=== PATIENT | female | born 1960 | race Caucasian/White ===

== ENCOUNTER 2018-05-28 13:10 | Emergency (ER) | payer OTHER ==
[~2018-05-28] VITALS: Ht 149.9 cm; Wt 74.8 kg
[2018-05-28 13:10] VITALS: BP 104/62
[~2018-05-28 13:10] MED LIST: ALPR2TAB5 PO; HYDR-2769 PO
[2018-05-28] MEDS ORDERED: IV NORMAL SALINE 1,000ML 1,000 ML IV ONE (14:15)
--- NOTE | 2018-05-28 15:29 | RAD ---
EXAM: Left foot 3 views. HISTORY: Left foot pain, infection. COMPARISON: 10/15/2015. FINDINGS: The tip of the third digit is not well visualized. There appears to be surrounding soft tissue swelling. A cortical erosion cannot be excluded. No fractures are identified. Joint spaces and alignment are maintained. IMPRESSION: 1. Correlate for the site of infection to exclude acute or prior osteomyelitis at the tip of the third digit. Detailed images of the third digit could be more specific if there is persistent concern. Electronically signed by: Jayde Hallman MD (05/28/2018 3:26 PM) [facility] [place]
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
[2018-05-28 15:59] LABS: BASO % 1 % (0-3); EOS % 1 % (0-3); HEMATOCRIT 35.8 % (36.0-47.0); HEMOGLOBIN 11.9 g/dL (12.0-15.5); LYMPH # 0.6 x10^3/uL (1.0-4.8); LYMPH % 13 % (24-48); MEAN CORPUSCULAR HEMOGLOBIN 31 pg (25-35); MEAN CORPUSCULAR HGB CONC 33 g/dL (31-37); MEAN CORPUSCULAR VOLUME 94 fL (79-100); MONO # 0.4 x10^3/uL (0.0-1.1); MONO % 8 % (0-9); NEUT # 4.1 x10^3uL (1.8-7.7); NEUT % 79 % (31-73); PLATELET COUNT 137 x10^3/uL (140-400); RED BLOOD COUNT 3.81 x10^6/uL (3.50-5.40); RED CELL DISTRIBUTION WIDTH 15.9 % (11.5-14.5); WHITE BLOOD COUNT 5.2 x10^3/uL (4.0-11.0)
[2018-05-28 16:10] LABS: ALBUMIN/GLOBULIN RATIO 0.9 (1.0-1.7); CALCIUM 8.4 mg/dL (8.5-10.1); CREATININE 1.4 mg/dL (0.6-1.0); GFR 38.5; POTASSIUM 3.9 mmol/L (3.5-5.1); TOTAL BILIRUBIN 0.8 mg/dL (0.2-1.0); TOTAL PROTEIN 6.4 g/dL (6.4-8.2)
[2018-05-28 16:54] LABS: % ATYL 3 % (0-0); % EOS 1 % (0-5); % LYMPHS 9 % (24-48); % MONOS 11 % (0-10); % SEGS 76 % (35-66)
[2018-05-28 16:56] LABS: HYPOCHROMIA SLIGHT; PLT ESTIMATE ADEQUATE (ADEQUATE); POLYCHROMASIA SLIGHT
[2018-05-28 17:55] LABS: BACTERIA,URINE 0 /HPF (0-FEW); BILIRUBIN,URINE NEG (NEG); CLARITY,URINE HAZY; COLOR,URINE AMBER; GLUCOSE,URINE NEG (NEG); NITRITE,URINE NEG (NEG); RBC,URINE 0 /HPF (0-2); SQUAMOUS EPITHELIAL CELL,UR OCC /LPF; UROBILINOGEN,URINE 4 mg/dL (0.2 mg/dL); WBC,URINE 0 /HPF (0-4)
== END 2018-05-28 17:40 | disposition home or self-care (01) ==
LOC: EEVIPCON 13:10 → ER 13:10
DX: S90.32XA Contusion of left foot, initial encounter (principal); S90.822A Blister (nonthermal), left foot, initial encounter; J01.00 Acute maxillary sinusitis, unspecified; L08.89 Other specified local infections of the skin and subcutaneous tissue; D69.6 Thrombocytopenia, unspecified; R74.0 Nonspecific elevation of levels of transaminase and lactic acid dehydrogenase [LDH]; R91.8 Other nonspecific abnormal finding of lung field; M47.892 Other spondylosis, cervical region; Z79.2 Long term (current) use of antibiotics; Z79.01 Long term (current) use of anticoagulants; Z88.1 Allergy status to other antibiotic agents; Z88.6 Allergy status to analgesic agent; Z91.012 Allergy to eggs; Y04.2XXA Assault by strike against or bumped into by another person, initial encounter; Y93.89 Activity, other specified; Y92.89 Other specified places as the place of occurrence of the external cause; Y99.8 Other external cause status
CPT/HCPCS: 10160; 36415; 70450; 72125; 73630; 80053; 81001; 83605; 85007; 85025; 87040; 87070; 96360; 96361; 99284-25; J7030

== ENCOUNTER 2020-04-22 20:39 | Emergency (ER) | payer MEDICARE, OTHER | END 2020-04-22 21:21 | disposition left against medical advice (07) | LOC: ER 20:39 | DX: N39.9 Disorder of urinary system, unspecified (principal); Z53.21 Procedure and treatment not carried out due to patient leaving prior to being seen by health care provider ==

== ENCOUNTER 2020-10-10 10:25 | Emergency (ER) | payer MEDICARE ==
[~2020-10-10] VITALS: Ht 149.9 cm; Wt 62.4 kg
[2020-10-10 10:35] VITALS: BP 111/60
[2020-10-10 11:42] LABS: BILIRUBIN,URINE NEG (NEG); CLARITY,URINE CLEAR; COLOR,URINE YELLOW; GLUCOSE,URINE NEG (NEG); NITRITE,URINE NEG (NEG); UROBILINOGEN,URINE 0.2 mg/dL (0.2 mg/dL)
[2020-10-10 11:45] LABS: BACTERIA,URINE MANY /HPF (0-FEW); SQUAMOUS EPITHELIAL CELL,UR MOD /LPF
[2020-10-10 11:54] LABS: BASO # 0.1 x10^3/uL (0.0-0.2); BASO % 1 % (0-3); EOS % 1 % (0-3); HEMATOCRIT 41.2 % (36.0-47.0); LYMPH # 0.3 x10^3/uL (1.0-4.8); LYMPH % 5 % (24-48); MEAN CORPUSCULAR HEMOGLOBIN 36 pg (25-35); MEAN CORPUSCULAR HGB CONC 34 g/dL (31-37); MEAN CORPUSCULAR VOLUME 105 fL (79-100); MONO # 0.2 x10^3/uL (0.0-1.1); MONO % 4 % (0-9); NEUT # 6.4 x10^3uL (1.8-7.7); NEUT % 90 % (31-73); PLATELET COUNT 129 x10^3/uL (140-400); RED BLOOD COUNT 3.91 x10^6/uL (3.50-5.40); WHITE BLOOD COUNT 7.1 x10^3/uL (4.0-11.0)
--- NOTE | 2020-10-10 12:17 | RAD ---
CT ABDOMEN+PELVIS WO October 10, 2020 Indication: Reason: decreased urination, h/o lung ca Exposure: One or more of the following individualized dose reduction techniques were utilized for thi s examination: 1. Automated exposure control 2. Adjustment of the mA and/or kV according to patient size 3. Use of iterative reconstruction technique. Comparison: None are available. Contrast: No intravenous contrast given. No oral contrast per request. Evaluation of solid viscera, bowel and vasculature is compromised by the noncontrast technique. Lower thorax: Lung bases are clear. Liver: Unremarkable Spleen: Small calcifications from prior granulomatous disease. Pancreas: Unremarkable Adrenals: No evidence of mass. Kidneys: Patient has an anatomic variant horseshoe kidney. There are small renal calculi bilaterally measuring up to 5 mm on the left and 4 mm on the right. There is mild left hydronephrosis with a abreu sition to a normal caliber ureter at the ureteropelvic junction, likely of limited clinical significa nce. No ureteronephrosis. Gallbladder: Surgically absent. Aorta: Nonaneurysmal Lymph nodes: No significant enlargement GI tract: No evidence of acute colitis. Mildly dilated loops of air-filled small intestine measuring up to 3.5 cm. There is a transition to nondilated loops of small bowel in the upper mid abdomen (imag e 61). There is no pneumatosis, bowel wall thickening or pleural venous gas. The appendix is normal. Reproductive organs:The uterus is surgically absent. Urinary bladder: Not adequately distended for evaluation. Peritoneum: No evidence of pneumoperitoneum. No free fluid. Abdominal wall: Unremarkable Spine: Vertebral body height and alignment are intact. Bones: No destructive process identified. External Soft Tissue: No acute findings. IMPRESSION: 1. No evidence of urinary obstruction. 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 There are multiple renal calculi which are nonobstructing. There is mild left hydroureteronephrosis with a transition at the UPJ, likely of limited clinical significance. 2. Mildly dilated air-filled small intestine (up to 3.5 cm) with a transition to decompressed small i ntestine in the mid upper abdomen. CT with IV and oral contrast recommended if there are clinical sig ns and symptoms of small bowel obstruction. Electronically signed by: Donald Andre (10/10/2020 12:15 PM) [id number]
[2020-10-10 12:34] LABS: ALBUMIN/GLOBULIN RATIO 1.1 (1.0-1.7); ALK PHOS 131 U/L (46-116); ALT (SGPT) 16 U/L (14-59); AST (SGOT) 20 U/L (15-37); BLOOD UREA NITROGEN 10 mg/dL (7-20); BUN/CREATININE RATIO 8 (6-20); CALCIUM 8.7 mg/dL (8.5-10.1); CARBON DIOXIDE 31 mmol/L (21-32); CREATININE 1.2 mg/dL (0.6-1.0); GFR 45.5; GLUCOSE 103 mg/dL (70-99); TOTAL BILIRUBIN 0.3 mg/dL (0.2-1.0); TOTAL PROTEIN 7.6 g/dL (6.4-8.2)
--- NOTE | 2020-10-10 13:18 | PHYS DOC ---
Past History Past Medical History: Cancer, Gallstones Past Surgical History: Cholecystectomy, Hysterectomy, Oophorectomy, Tonsillectomy, Other Additional Past Surgical Histo: left lower lobectomy Alcohol Use: None Drug Use: None General Adult EDM: Chief Complaint: PAIN ON URINATION HPI: HPI: 60-year-old female past medical history small cell lung cancer and "lymphoma" s/p chemo/rads, presents to the ED with [id number] yrs/exhusband, (patient consents to his/her/their knowledge and involvement in pts' medical care), sent in by [facility] with concern for decreased urine output and dysuria. UC papers note heart rate was 105. Patient states she was recently seen by her oncologist and was informed her cancer has returned-has follow-up in a few months regarding treatment plan. Review of Systems: Review of Systems: Constitutional: Denies fever or chills Eyes: Denies change in visual acuity HENT: Denies nasal congestion or sore throat Respiratory: Denies cough or shortness of breath Cardiovascular: Denies chest pain or edema GI: Denies abdominal pain, nausea, vomiting, bloody stools or diarrhea : Denies dysuria Musculoskeletal: Denies back pain or joint pain Integument: Denies rash Neurologic: Denies headache, focal weakness or sensory changes Endocrine: Denies polyuria or polydipsia Lymphatic: Denies swollen glands Psychiatric: Denies depression or anxiety Allergies: Allergies: Allergies Coded Allergies Type Severity Reaction Last Updated Verified amoxicillin Allergy Severe anaphylaxis 06/18/14 Yes aspirin Allergy Severe Unknown 10/15/15 Yes azithromycin Allergy Severe anaphylaxis 06/18/14 Yes egg Allergy Intermediate 06/18/14 Yes Physical Exam: PE: Constitutional: Well developed, well nourished, no acute distress, non-toxic appearance. HENT: Normocephalic, atraumatic, Eyes: EOMI, conjunctiva normal, no discharge. Neck: Normal range of motion, supple, Cardiovascular: S1/2 present, regular rhythm Lungs & Thorax: Speaking in full sentences, bilateral equal chest rise, no tachypnea or increased work of breathing Abdomen: soft, no tenderness, Skin: Warm, dry, no erythema, no rash. [] Back: No tenderness, no CVA tenderness. [] Extremities: No tenderness, no cyanosis, no lower extremity edema Neurologic: Alert and oriented X 3, normal motor function, normal sensory function, no focal deficits noted. [] Psychologic: Affect normal, judgement normal, mood normal. [] Current Patient Data: Labs: Laboratory Tests Test 10/10/20 11:01 10/10/20 11:38 Urine Collection Type U cath Urine Color Yellow Urine Clarity Clear Urine pH 6.5 Urine Specific [place] 1.015 Urine Protein Neg (NEG-TRACE) Urine Glucose (UA) Neg mg/dL (NEG) Urine Ketones (Stick) Neg mg/dL (NEG) Urine Blood Trace (NEG) Urine Nitrite Neg (NEG) Urine Bilirubin Neg (NEG) Urine Urobilinogen Dipstick 0.2 mg/dL (0.2 mg/dL) Urine Leukocyte Esterase Neg (NEG) Urine RBC 6-10 /HPF (0-2) Urine WBC 5-10 /HPF (0-4) Urine Squamous Epithelial Cells Mod /LPF Urine Transitional Epithelial Cells Mod /LPF Urine Bacteria Many /HPF (0-FEW) Urine Mucus Slight /LPF White Blood Count 7.1 x10^3/uL (4.0-11.0) Red Blood Count 3.91 x10^6/uL (3.50-5.40) Hemoglobin 14.0 g/dL (12.0-15.5) Hematocrit 41.2 % (36.0-47.0) Mean Corpuscular Volume 105 fL (79-100) H Mean Corpuscular Hemoglobin 36 pg (25-35) H Mean Corpuscular Hemoglobin Concent 34 g/dL (31-37) Red Cell Distribution Width 16.0 % (11.5-14.5) H Platelet Count 129 x10^3/uL (140-400) L Neutrophils (%) (Auto) 90 % (31-73) H Lymphocytes (%) (Auto) 5 % (24-48) L Monocytes (%) (Auto) 4 % (0-9) Eosinophils (%) (Auto) 1 % (0-3) Basophils (%) (Auto) 1 % (0-3) Neutrophils # (Auto) 6.4 x10^3uL (1.8-7.7) Lymphocytes # (Auto) 0.3 x10^3/uL (1.0-4.8) L Monocytes # (Auto) 0.2 x10^3/uL (0.0-1.1) Eosinophils # (Auto) 0.0 x10^3/uL (0.0-0.7) Basophils # (Auto) 0.1 x10^3/uL (0.0-0.2) Sodium Level Pending Potassium Level Pending Chloride Level Pending Carbon Dioxide Level 31 mmol/L (21-32) Anion Gap Pending Blood Urea Nitrogen 10 mg/dL (7-20) Creatinine 1.2 mg/dL (0.6-1.0) H Estimated GFR (Cockcroft-Gault) 45.5 BUN/Creatinine Ratio 8 (6-20) Glucose Level 103 mg/dL (70-99) H Lactic Acid Level 1.9 mmol/L (0.4-2.0) Calcium Level 8.7 mg/dL (8.5-10.1) Total Bilirubin 0.3 mg/dL (0.2-1.0) Aspartate Amino Transferase (AST) 20 U/L (15-37) Alanine Aminotransferase (ALT) 16 U/L (14-59) Alkaline Phosphatase 131 U/L (46-116) H Total Protein 7.6 g/dL (6.4-8.2) Albumin 4.0 g/dL (3.4-5.0) Albumin/Globulin Ratio 1.1 (1.0-1.7) Vital Signs: Vital Signs Date Time Temp Pulse Resp B/P (MAP) Pulse Ox O2 Delivery O2 Flow Rate FiO2 10/10/20 10:35 103 24 111/60 (77) 98 Room Air 10/10/20 10:30 97.8 EKG: EKG: [] Radiology/Procedures: Radiology/Procedures: []IMAGING REPORT Signed PATIENT: MEHNAZ CHESTER ACCOUNT: [id number] : 1960 LOCATION: ER AGE: 60 SEX: F EXAM STATUS: REG ER ORD. PHYSICIAN: VALERIE SANCHEZ DO REASON: decreased urination, h/o lung ca PROCEDURE: CT ABDOMEN PELVIS WO CONTRAST CT ABDOMEN+PELVIS WO October 10, 2020 Indication: Reason: decreased urination, h/o lung ca Exposure: One or more of the following individualized dose reduction techniques were utilized for this examination: 1. Automated exposure control 2. Adjustment of the mA and/or kV according to patient size 3. Use of iterative reconstruction technique. Comparison: None are available. Contrast: No intravenous contrast given. No oral contrast per request. Evaluation of solid viscera, bowel and vasculature is compromised by the noncontrast technique. Lower thorax: Lung bases are clear. Liver: Unremarkable Spleen: Small calcifications from prior granulomatous disease. Pancreas: Unremarkable Adrenals: No evidence of mass. Kidneys: Patient has an anatomic variant horseshoe kidney. There are small renal calculi bilaterally measuring up to 5 mm on the left and 4 mm on the right. There is mild left hydronephrosis with a transition to a normal caliber ureter at the ureteropelvic junction, likely of limited clinical significance. No ureteronephrosis. Gallbladder: Surgically absent. Aorta: Nonaneurysmal Lymph nodes: No significant enlargement GI tract: No evidence of acute colitis. Mildly dilated loops of air-filled small intestine measuring up to 3.5 cm. There is a transition to nondilated loops of small bowel in the upper mid abdomen (image 61). There is no pneumatosis, bowel wall thickening or pleural venous gas. The appendix is normal. Reproductive organs:The uterus is surgically absent. Urinary bladder: Not adequately distended for evaluation. Peritoneum: No evidence of pneumoperitoneum. No free fluid. Abdominal wall: Unremarkable Spine: Vertebral body height and alignment are intact. Bones: No destructive process identified. External Soft Tissue: No acute findings. IMPRESSION: 1. No evidence of urinary obstruction. 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 There are multiple renal calculi which are no nobstructing. There is mild left hydroureteronephrosis with a transition at the UPJ, likely of limited clinical significance. 2. Mildly dilated air-filled small intestine (up to 3.5 cm) with a transition to decompressed small intestine in the mid upper abdomen. CT with IV and oral contrast recommended if there are clinical signs and symptoms of small bowel obstruction. Electronically signed by: Aliza Andre (10/10/2020 12:15 PM) [id number] DICTATED AND SIGNED BY: ALIZA ANDRE MD DATE: 10/10/20 1149 CC: ROXANNA GARCIA; VALERIE SANCHEZ DO ~MTH0 0 Heart Score: C/O Chest Pain: No Risk Factors: Risk Factors: DM, Current or recent (<one month) smoker, HTN, HLP, family history of CAD, obesity. Risk Scores: Score 0 - 3: 2.5% MACE over next 6 weeks - Discharge Home Score 4 - 6: 20.3% MACE over next 6 weeks - Admit for Clinical Observation Score 7 - 10: 72.7% MACE over next 6 weeks - Early Invasive Strategies Course & Med Decision Making: Course & Med Decision Making Pertinent Labs and Imaging studies reviewed. (See chart for details) [] Dragon Disclaimer: Dragon Disclaimer: This electronic medical record was generated, in whole or in part, using a voice recognition dictation system. Departure Departure: Impression: Primary Impression: Dysuria Additional Impression: Renal insufficiency Disposition: 02 SHORT TERM HOSPITAL Condition: STABLE Referrals: ROXANNA GARCIA (PCP) [facility]-Dr. Ramires or Dr. Mai within 3-[address], [address] [place] [address] Patient Instructions: Urinary Tract Infection Additional Instructions: REPEAT YOUR URINE TEST WITH PCP IN 10 DAYS EMERGENCY DEPARTMENT GENERAL DISCHARGE INSTRUCTIONS Thank you for coming to [facility] (ED) today and trusting us with you care. We trust that you had a positivie experience in our Emergency Department. If you wish to speak to the department management, you may call the director at [phone]. YOUR FOLLOW UP INSTRUCTIONS ARE FOLLOWS: 1. Do you have a private Doctor? If you do not have a private doctor, please ask for a resource list of physicians or clinics that may be able to assist you with follow up care. 3. A lab test or culture has been done, your results will be reviewed and you will be notified if you need a change in treatment. ADDITIONAL INSTRUCTIONS AND INFORMATION: 1. Your care today has been supervised by a physician who is specially trained in emergency care. Many problems require more than one evaluation for a complete diagnosis and treatment. We recommend that you schedule your follow up appointment as recommended to ensure complete treatment of you illness or injury. If you are unable to obtain follow up care and continue to have a problem, or if your condition worsens, we recommend that you return to the ED. 2. We are not able to safely determine your condition over the phone nor are we able to give sound medical advice over the phone. For these safety reasons, if you call for medical advice we will ask you to come to the ED for further evaluation. 3. If you have any questions regarding these discharge instructions please call the ED at [phone]. SAFETY INFORMATION: In the interest of safety, wellness, and injury prevention; we encourage you to wear your sealbelt, if you smoke; quite smoking, and we encourage family to use a protective helmet for bicycling and other sporting events that present an increased risk for head injury. IF YOUR SYMPTOMS WORSEN OR NEW SYMPTOMS DEVELOP, OR YOU HAVE CONCERNS ABOUT YOUR CONDITION; OR IF YOUR CONDITION WORSENS WHILE YOU ARE WAITING FOR YOUR FOLLOW UP APPOINTMENT; EITHER CONTACT YOUR PRIMARY CARE DOCTOR, THE PHYSICIAN WHOSE NAME AND NUMBER YOU WERE GIVEN, OR RETURN TO THE ED IMMEDIATELY. Scripts Phenazopyridine Hcl (PHENAZOPYRIDINE HCL) 100 Mg Tablet 1 TAB PO TID for urinary discomfort for 3 Days, #9 TAB 0 Refills Prov: VALERIE SANCHEZ DO 10/10/20 Sulfamethoxazole/Trimethoprim (BACTRIM DS TABLET) 1 Each Tablet 1 TAB PO BID for uti for 5 Days, #10 TAB 0 Refills Prov: VALERIE SANCHEZ DO 10/10/20 VALERIE SANCHEZ DO Oct 10, 2020 13:18
[2020-10-10] MEDS ORDERED: IOHEXOL 240 MG/ML 50ML VIAL. ONE (13:20)
[2020-10-10] MEDS ORDERED: IOHEXOL 300 MG/ML 75 ML VIAL. IV ONE (13:30)
[2020-10-10] MEDS ORDERED: SULF1TAB24 PO (13:38)
[2020-10-10] MEDS ORDERED: PHEN-443 PO (13:39)
[2020-10-10] MEDS ORDERED: CONTRAST GIVEN. MC PRN (13:45)
== END 2020-10-10 13:51 | disposition short-term general hospital (02) ==
LOC: ER 10:25
DX: N28.9 Disorder of kidney and ureter, unspecified (principal); N39.0 Urinary tract infection, site not specified; Z88.1 Allergy status to other antibiotic agents; Z88.5 Allergy status to narcotic agent; Z90.49 Acquired absence of other specified parts of digestive tract; Z90.710 Acquired absence of both cervix and uterus
CPT/HCPCS: 36415; 74176; 80053; 81001; 83605; 85025; 87040; 87086; 99284-25

== ENCOUNTER 2021-04-15 14:59 | Inpatient (IN) | payer MEDICARE ==
[~2021-04-15] VITALS: Ht 175.3 cm; Wt 57.0 kg
[~2021-04-15 14:59] MED LIST changes: +PHEN-443 PO; +SULF1TAB24 PO
[2021-04-15] MEDS ORDERED: IV NORMAL SALINE 1,000ML 1,000 ML IV ONE (15:30)
--- NOTE | 2021-04-15 15:37 | EKG ---
[address] [address] Test Date: 2021-04-15 Test Time: 15:32:29 Pat Name: MEHNAZ CHESTER Department: Room: Gender: F Active Directory Specialist: MARYLIN : 1960 Requested By: SUELLEN DELUCA Order Number: [id number] Reading MD: Rush Alejandro Measurements Intervals [place]herty Rate: 97 P: 76 ME: 136 QRS: -5 QRSD: 82 T: 55 QT: 312 QTc: 400 Interpretive Statements SINUS RHYTHM ATRIAL PREMATURE COMPLEX(ES) LEFTWARD AXIS Electronically Signed On 04-16-2021 19:31:37 TIMBER ROBBER by Rush Alejandro
--- NOTE | 2021-04-15 15:57 | RAD ---
EXAM: Chest, single view. HISTORY: Short of breath. COMPARISON: Cervical spine CT dated 05/28/2018. FINDINGS: A single view of the chest obtained. There is masslike right suprahilar opacity. There is a dditional focal opacity with adjacent pleural thickening within the left lung apex. There are clips o verlying the left hilum and left inferior lateral thorax. The heart is normal in size. There is no pl eural effusion or pneumothorax. IMPRESSION: 1. Masslike right suprahilar opacity, likely corresponding with neoplasm or post radiation changes. T his is similar compared to the prior CT when allowing for differences in imaging modality. 2. Left apical opacity with adjacent pleural thickening, without a convincing correlate on the prior CT. This may be due to additional scarring or underlying neoplasm. Electronically signed by: Elizabeth Raza MD (04/15/2021 3:55 PM) [id number]
[2021-04-15 16:14] LABS: BASO % 0 % (0-3); EOS % 0 % (0-3); HEMATOCRIT 36.2 % (36.0-47.0); HEMOGLOBIN 12.1 g/dL (12.0-15.5); LYMPH # 0.2 x10^3/uL (1.0-4.8); LYMPH % 3 % (24-48); MEAN CORPUSCULAR HEMOGLOBIN 33 pg (25-35); MEAN CORPUSCULAR HGB CONC 33 g/dL (31-37); MEAN CORPUSCULAR VOLUME 100 fL (79-100); MONO # 0.4 x10^3/uL (0.0-1.1); MONO % 5 % (0-9); NEUT # 6.7 x10^3uL (1.8-7.7); NEUT % 92 % (31-73); PLATELET COUNT 211 x10^3/uL (140-400); RED BLOOD COUNT 3.61 x10^6/uL (3.50-5.40); RED CELL DISTRIBUTION WIDTH 15.2 % (11.5-14.5); WHITE BLOOD COUNT 7.3 x10^3/uL (4.0-11.0)
[2021-04-15 16:15] LABS: CALCIUM 8.4 mg/dL (8.5-10.1); GFR 56.2
--- NOTE | 2021-04-15 16:23 | PHYS DOC ---
Past History Past Medical History: Cancer, Gallstones Additional Past Medical Histor: lung cancer (SUELLEN DELUCA APRN) Past Surgical History: Cholecystectomy, Hysterectomy, Oophorectomy, Tonsillectomy, Other Additional Past Surgical Histo: left lower lobectomy (SUELLEN DELUCA APRN) Alcohol Use: None Drug Use: None (SUELLEN DELUCA APRN) Adult General Chief Complaint Chief Complaint: DIARRHEA HPI HPI Patient is a 60-year-old female presents to the emergency department complaining of diarrhea with cough and congestion for the past week. 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 Patient denies chest pains, abdominal pain, denies constipation, denies increased urinary frequency, urinary burning, or other dysuria, denies seeing blood in her urine. Patient denies seeing blood in her stool stating that she has had diarrhea every day for the past week noting loose brown stool. Patient denies recent fever or chills. Patient denies other physical complaints or physical concerns. (SUELLEN DELUCA APRN) Review of Systems Review of Systems 14 body systems of review of systems have been reviewed. See HPI for pertinent positives and negative responses, otherwise all other systems are negative, nonpertinent or noncontributory. Constitutional: Negative except as outlined in HPI above. Skin: Negative except as outlined in HPI above. Eyes: Negative except as outlined in HPI above. HENT: Negative except as outlined in HPI above. Respiratory: Negative except as outlined in HPI above. Cardiovascular: Negative except as outlined in HPI above. GI: Negative except as outlined in HPI above. : Negative except as outlined in HPI above. Musculoskeletal: Negative except as outlined in HPI above. Integument: Negative except as outlined in HPI above. Neurologic: Negative except as outlined in HPI above. Endocrine: Negative except as outlined in HPI above. Lymphatic: Negative except as outlined in HPI above. Psychiatric: Negative except as outlined in HPI above. (SUELLEN DELUCA APRN) Current Medications Current Medications Current Medications Medications (Trade) Dose Ordered Sig/Travis Start Time Stop Time Status Last Admin Dose Admin Sodium Chloride 1,000 ml @ 1,000 mls/hr 1X ONCE 04/15/21 15:30 04/15/21 16:29 04/15/21 15:30 1,000 MLS/HR (SUELLEN DELUCA APRN) Allergies Allergies Allergies Coded Allergies Type Severity Reaction Last Updated Verified amoxicillin Allergy Severe anaphylaxis 06/18/14 Yes aspirin Allergy Severe Unknown 10/15/15 Yes azithromycin Allergy Severe anaphylaxis 06/18/14 Yes egg Allergy Intermediate 06/18/14 Yes (SUELLEN DELUCA APRN) Physical Exam Physical Exam Constitutional: Well developed, well nourished, no acute distress, non-toxic appearance. 60-year-old female pale in appearance otherwise in no apparent distress. HENT: Normocephalic, atraumatic. Bilateral TMs within normal limits, no deep tissue infectious process appreciated of the oropharynx, moist, pink, no lymphadenopathy of the head or neck appreciated, bilateral TMs within normal limits. Eyes: Conjunctiva normal, no discharge. Neck: Normal range of motion, no stridor. Cardiovascular: No cyanosis appreciated, distal cap refill less than 2 seconds. Heart sounds S1-S2, regular rate and rhythm. Lungs & Thorax: Patient is in no respiratory distress, no audible adventitious lung sounds appreciated. Lung sounds diminished all lung suggs, the patient is not tachypneic, the patient is hypoxic 87% on room air saturation, no accessory muscle use for breathing apparent. Abdomen: Nontender, no abnormalities noted. Normal bowel sounds all 4 quadrants. Skin: Warm, dry, no erythema, no rash. Back: No tenderness, no deformities. Extremities: No tenderness, no cyanosis, no clubbing, ROM intact, no edema. Neurologic: Alert and oriented X 3, normal motor function, normal sensory function, no focal deficits noted. Psychologic: Affect normal, judgement normal, mood normal. (SUELLEN DELUCA APRN) Current Patient Data Vital Signs Vital Signs Date Time Temp Pulse Resp B/P (MAP) Pulse Ox O2 Delivery O2 Flow Rate FiO2 04/15/21 15:08 98.6 105 104/58 (73) 90 Room Air Lab Results Laboratory Tests Test 04/15/21 15:15 04/15/21 15:40 White Blood Count 7.3 x10^3/uL (4.0-11.0) Red Blood Count 3.61 x10^6/uL (3.50-5.40) Hemoglobin 12.1 g/dL (12.0-15.5) Hematocrit 36.2 % (36.0-47.0) Mean Corpuscular Volume 100 fL (79-100) Mean Corpuscular Hemoglobin 33 pg (25-35) Mean Corpuscular Hemoglobin Concent 33 g/dL (31-37) Red Cell Distribution Width 15.2 % (11.5-14.5) H Platelet Count 211 x10^3/uL (140-400) Neutrophils (%) (Auto) 92 % (31-73) H Lymphocytes (%) (Auto) 3 % (24-48) L Monocytes (%) (Auto) 5 % (0-9) Eosinophils (%) (Auto) 0 % (0-3) Basophils (%) (Auto) 0 % (0-3) Neutrophils # (Auto) 6.7 x10^3uL (1.8-7.7) Lymphocytes # (Auto) 0.2 x10^3/uL (1.0-4.8) L Monocytes # (Auto) 0.4 x10^3/uL (0.0-1.1) Eosinophils # (Auto) 0.0 x10^3/uL (0.0-0.7) Basophils # (Auto) 0.0 x10^3/uL (0.0-0.2) Sodium Level 140 mmol/L (136-145) Potassium Level 3.0 mmol/L (3.5-5.1) L Chloride Level 101 mmol/L (98-107) Carbon Dioxide Level 32 mmol/L (21-32) Anion Gap 7 (6-14) Blood Urea Nitrogen 18 mg/dL (7-20) Creatinine 1.0 mg/dL (0.6-1.0) Estimated GFR (Cockcroft-Gault) 56.2 BUN/Creatinine Ratio 18 (6-20) Glucose Level 110 mg/dL (70-99) H Calcium Level 8.4 mg/dL (8.5-10.1) L Phosphorus Level Pending Magnesium Level Pending Total Bilirubin Pending Aspartate Amino Transferase (AST) Pending Alanine Aminotransferase (ALT) Pending Alkaline Phosphatase Pending WA-Urg-H-Type Natriuretic Peptide Pending Total Protein Pending Albumin Pending Albumin/Globulin Ratio Pending POC Venous pH 7.46 (7.32-7.42) H POC Venous pCO2 47 mmHg (41-51) POC Venous pO2 20 mmHg (20-40) Venous Blood HCO3 33 mmol/L (24-28) H POC Venous O2 Saturation (Paramjit) 34 % POC FiO2 21 (SUELLEN DELUCA APRN) EKG EKG EKG performed at 1532 by ED nursing staff shows a normal sinus rhythm with an occasional PAC, heart rate 97 bpm, MD interval 0.136, QTc interval 0.400, no acute STEMI, no ACS, no acute ischemia appreciated, EKG interpreted by ED attending physician Dr. Hall. (SUELLEN DELUCA APRN) Radiology/Procedures Radiology/Procedures STATUS: REG ER ORD. PHYSICIAN: SUELLEN DELUCA APRN REASON: Short of breath PROCEDURE: CHEST AP ONLY EXAM: Chest, single view. HISTORY: Short of breath. COMPARISON: Cervical spine CT dated 05/28/2018. FINDINGS: A single view of the chest obtained. There is masslike right suprahilar opacity. There is additional focal opacity with adjacent pleural thickening within the left lung apex. There are clips overlying the left hilum and left inferior lateral thorax. The heart is normal in size. There is no pleural effusion or pneumothorax. IMPRESSION: 1. Masslike right suprahilar opacity, likely corresponding with neoplasm or post radiation changes. This is similar compared to the prior CT when allowing for differences in imaging modality. 2. Left apical opacity with adjacent pleural thickening, without a convincing correlate on the prior CT. This may be due to additional scarring or underlying neoplasm. Electronically signed by: Elizabeth Raza MD (04/15/2021 3:55 PM) [id number] (SUELLEN DELUCA APRN) Heart Score C/O Chest Pain: No Risk Factors: Risk Factors: DM, Current or recent (<one month) smoker, HTN, HLP, family history of CAD, obesity. Risk Scores: Risk Factors: DM, Current or recent (<one month) smoker, HTN, HLP, family history of CAD, obesity. (SUELLEN DELUCA APRN) Course & Med Decision Making Course & Med Decision Making Pertinent Labs and Imaging studies reviewed. (See chart for details) 60-year-old female, vital signs reviewed, resents emerged from concerning diarrhea with cough and congestion for the past week. Physical examination concerning for acute hypoxia, will order CBC, CMP, EKG, chest x-ray, troponin I high-sensitivity, NT proBNP, lipase, CT abdomen pelvis with IV contrast related to complaint of diarrhea, highly suspicious for pulmonary embolus will order CT angio chest, venous blood gas. Related to patient's hypoxia, patient placed on 2 L nasal cannula oxygen, patient's potassium is 3.0, will order p.o. potassium supplement, patient's magnesium 1.4, Dr. Hall ordered 2 g IV magnesium, CT angio chest concerning for community-acquired pneumonia, most likely Covid pneumonia as patient's Covid test is positive, flu test is negative, will order 6 mg Decadron IV, 100 mg doxycycline related to patient's allergy to azithromycin, 1 g of Rocephin IV ordered. Discussed findings with patient and recommended admission to the hospital for hypoxia with COVID-19 pneumonia, patient's CT abdomen pelvis concerning for colitis we will discuss this with inpatient management physician regarding admission. Patient is amenable to ED admission planning. Called and discussed patient case and ED work-up with inpatient management physician Dr. King who agrees patient case requires admission to the medical surgical unit, patient is a DNR and reports having a advanced directive, Dr. King requests patient be on regular diet, normal saline at 75 cc an hour, Rocephin 1 g IV every 24 hours, Levaquin 500 mg IV every 24 hours, Solu-Medrol 60 mg twice daily IV, admit to medical surgical unit without telemetry, DNR. Will order these request from Dr. King, patient is awaiting bed assignment from warehouse checker at this time. Patient is currently hemodynamically stable, is in no apparent respiratory distress, is no longer pale in appearance since started on 2 L nasal cannula O2, current oxygen saturation between 9697%. (SUELLEN DELUCA APRN) Course & Med Decision Making I was the Attending physician on the above date of service of this patient. This patient was evaluated, examined, treated, and dispositioned from the emergency department by the mid-level practitioner. Although I was working at the time , no assistance was requested. Electronically signed, Benoit Hall DO (BENOIT HALL DO) Jenifer Disclaimer Dragon Disclaimer This electronic medical record was generated, in whole or in part, using a voice recognition dictation system. (SUELLEN DELUCA APRN) Departure Departure: Impression: Primary Impression: COVID-19 virus infection Additional Impressions: Community acquired pneumonia Hypoxia Abnormal CT scan, chest Abnormal CT of the abdomen Diarrhea Atypical pneumonia Disposition: ADMITTED INPATIENT Admitting Physician: Del King (Admit to medical surgical unit.) (SUELLEN DELUCA APRN) Condition: GUARDED Referrals: DOTTY VASQUEZ MD (PCP) Problem Qualifiers Additional Impressions: Community acquired pneumonia Laterality: unspecified laterality Qualified Codes: J18.9 - Pneumonia, unspecified organism Diarrhea Diarrhea type: unspecified type Qualified Codes: R19.7 - Diarrhea, unspecified SUELLEN DELUCA APRN Apr 15, 2021 16:23 BENOIT HALL DO Apr 16, 2021 06:41
[2021-04-15 16:30] LABS: ALBUMIN 3.2 g/dL (3.4-5.0); ALBUMIN/GLOBULIN RATIO 0.8 (1.0-1.7); MAGNESIUM 1.6 mg/dL (1.8-2.4); PHOSPHORUS 2.1 mg/dL (2.6-4.7); TOTAL BILIRUBIN 0.5 mg/dL (0.2-1.0); TOTAL PROTEIN 7.4 g/dL (6.4-8.2)
[2021-04-15] MEDS ORDERED: IOHEXOL 350 MG/ML 100 ML VIAL. IV ONE (16:30)
[2021-04-15] MEDS ORDERED: POTASSIUM CHLORIDE 20 MEQ TABLET.ER. PO ONE (16:45)
[2021-04-15] MEDS ORDERED: ONDANSETRON PF 4 MG/2 ML VIAL. IVP ONE (17:45)
[2021-04-15 17:46] LABS: INFLUENZA A PATIENT NEGATIVE (NEGATIVE); INFLUENZA B PATIENT NEGATIVE (NEGATIVE)
[2021-04-15] MEDS ORDERED: DOXYCYCLINE HYCLATE 100 MG in IV DEXTROSE 5% 100 ML IV ONE (18:00)
[2021-04-15] MEDS ORDERED: MAGNESIUM SULFATE 2GM 50 ML IV ONE (18:00)
[2021-04-15] MEDS ORDERED: DEXAMETHASONE SOD PHOS 10 MG/ML VIAL. IV ONE (18:00)
--- NOTE | 2021-04-15 18:02 | RAD ---
STUDY: 1. CT angiography of the chest-PE protocol 2. CT abdomen pelvis with contrast INDICATION: Severe hypoxia. Abdominal discomfort. Diarrhea. Pulmonary embolism. COMPARISON: CT abdomen/pelvis 10/10/2020 TECHNIQUE: Helical CT angiography of the chest timed for evaluation of the pulmonary arteries. 100 cc Omnipaque [address] imaging was also performed of the abdomen/pelvis with. 3D MIP reconst ructions through the chest. Routine coronal and sagittal reformats through the abdomen/pelvis. One or more of the following individualized dose reduction techniques were utilized for this examinat ion: 1. Automated exposure control 2. Adjustment of the mA and/or kV according to patient size 3. Use of iterative reconstruction technique. FINDINGS: CHEST: No main, lobar or segmental pulmonary embolism. Scattered calcified and noncalcified atheromatous plaque to include coronary artery involvement. No a ortic aneurysm. No definitive dissection considering bolus timing. Asymmetric soft tissue fullness at the right hilum along the bronchovascular structures. A few granul omas. Mild circumferential wall thickening of the esophagus. No pericardial effusion. Multifocal nodular infiltrates with a perifissural/subpleural predilection on the right more so than left. Additionally more dense opacity which is partly pleural-based at the left apex measures approxi mately 2.4 cm AP by 1.8 cm transverse by 1.1 cm craniocaudal. A smaller pleural-based nodular opacity at the right lung apex with spiculated margins measures 1.4 x 1 x 1 cm. The soft tissue density at t he right hilum extends along the bronchovascular structures mainly to the right upper lobe and along a portion of the right mediastinal border. There is crowding and some narrowing of airways to the rig ht apex. Background bronchial wall thickening. No axillary adenopathy. Diffuse osteopenia. ABDOMEN/PELVIS: No discrete hepatic mass. The may be some low-attenuation fluid along the inner margin of the right h epatic lobe in the setting of previous cholecystectomy. Unchanged prominence of the biliary tree like ly reservoir effect given stability. Fatty infiltration of the pancreas. The spleen is within normal limits for size. No adrenal gland mass. Horseshoe kidney with several intrarenal stones. Pelvocaliectasis on the left more so than right with out hydronephrosis is more pronounced from the comparison. No cause for obstruction is seen. Unremark able bladder. Absent uterus. No adnexal mass. Circumferentially thick-walled: Mainly from beyond the splenic flexure through the rectum. Lipomatous focus at the ascending colon on image 86 series 8 was present previously. Unremarkable appendix. No small bowel obstruction with similar mild distention from the prior. No gastric wall emphysema. Limit ed evaluation of the mucosa. Extensive calcified and noncalcified atheromatous plaque. Unchanged luminal dimensions of the aorta. No concerning lymph node enlargement. No pneumoperitoneum or free fluid. Chronic findings of the body wall soft tissues. Scattered degenerative osseous changes and osteopenia. IMPRESSION: CHEST: 1. No pulmonary embolism is identified. 2. Right more so than left airspace infiltrates much of which is nodular in configuration. Backgroun d emphysema. There are also more confluent opacities at both apices, measuring larger on the left, wi th spiculated margins. Soft tissue prominence at the right hilum and extending along the bronchovascu lar structures primarily to the right upper lobe and abutting the mediastinal border. The findings co uld represent pneumonia superimposed on malignancy. Treatment followed by repeat CT of the chest is n eeded in no more than a month. 3. Chronic observations to include trivessel calcific coronary artery disease. ABDOMEN/PELVIS: 1. Circumferential wall thickening of the colon most notably from just beyond the splenic flexure th rough the rectum is favored infectious or inflammatory colitis. No bowel obstruction, pneumatosis or perforation. 2. Horseshoe kidney. More pronounced pelvocaliectasis on the left more so than right from the 021 comparison without hydroureter. Several intrarenal stones but none are are identified at the uret eropelvic junction. A component of UPJ obstruction from a high insertion of the ureter is possible bu t this may not be clinically significant as there are no ancillary findings of obstructive uropathy. Electronically signed by: SHAZIA CHICAS MD (04/15/2021 5:59 PM) [facility]
[2021-04-15] MEDS ORDERED: IV NORMAL SALINE 50ML 0 ML ONE (18:21)
[2021-04-15] MEDS ORDERED: cefTRIAXone SODIUM 1 GM VIAL ONE ×2 (18:21→18:22)
[2021-04-15] MEDS ORDERED: IV NORMAL SALINE 50ML 50 ML ONE (18:22)
[2021-04-15] MEDS: IV NORMAL SALINE 1,000ML 1,000 ML IV SCH (18:45)
[2021-04-15 19:22] LABS: BILIRUBIN,URINE SMALL (NEG); CLARITY,URINE CLEAR; COLOR,URINE YELLOW; GLUCOSE,URINE NEG (NEG); NITRITE,URINE POS (NEG); RBC,URINE OCC /HPF (0-2)
[2021-04-15 19:23] LABS: BACTERIA,URINE FEW /HPF (0-FEW); SQUAMOUS EPITHELIAL CELL,UR FEW /LPF
[2021-04-15] MEDS ORDERED: RIVA20TA2 PO (19:39)
[2021-04-15] MEDS: methylPREDNISolone SOD SUCC PF 40 MG/ML VIAL. IV SCH (20:57)
--- NOTE | 2021-04-15 22:10 | NUR ---
ADMISSION: The patient, MEHNAZ CHESTER, 60 y/o, F admitted by NAYA TURNER MD, was given written information regarding hospital policies, unit procedures and contact persons. Pt arrived to room 103 via gurney, accompanied by [facility] and ED staff. Pt here for c/o diarrhea x1 week. Dx: COVID-19 Pneumonia, hypoxia. Pt sating 88-90% on RA, placed on supplemental O2 at 2L via NC with sats improved to upper 90's. Pt desats with activity. Pt with SBA up to BSC to void, tolerated fair. Pt had some incontinence of stool in underwear, cleansed and changed into brief. IVF's, Levaquin, and mag sulfate infusing per orders. PMH reviewed with pt. Reports she finished chemo and radiation for lung cancer in 02/2021. Pt still smokes 1/2 PPD. Pt unable to recall home meds, requests we contact [facility] in AM. Discussed POC, V/U. Call light in reach. Valuables were checked and logged. Left in room with pt.
[2021-04-15 22:30] VITALS: BP 106/56
[2021-04-16] MEDS ORDERED: FURO40TA4 PO (00:59)
[2021-04-16] MEDS ORDERED: ATOR80TA72 PO (00:59)
[2021-04-16] MEDS ORDERED: CLON2TAB9 PO (00:59)
[2021-04-16] MEDS ORDERED: TRAZ-125 PO (00:59)
[2021-04-16] MEDS ORDERED: LEVO50TA5 PO (00:59)
[2021-04-16] MEDS ORDERED: CARI350T14 PO (00:59)
[2021-04-16] MEDS ORDERED: OXYC10TA PO (00:59)
[2021-04-16] MEDS ORDERED: ALBU2.5V5 NEB (00:59)
[2021-04-16] MEDS ORDERED: UMEC1DIS INH (00:59)
--- NOTE | 2021-04-16 06:20 | NUR ---
Pt c/o back pain rated 8/10. Pt normally takes soma, oxycontin, and lortab at home for chronic back pain. Dr. King paged to reconcile home meds, awaiting call back.
[2021-04-16 06:26] VITALS: BP 102/64
[2021-04-16] MEDS ORDERED: ONDANSETRON PF 4 MG/2 ML VIAL. IVP PRN (06:45)
[2021-04-16] MEDS ORDERED: clonazePAM 2 MG TABLET PO PRN (06:45)
[2021-04-16] MEDS ORDERED: OXYCODONE HCL PO PRN (06:45)
[2021-04-16] MEDS: HYDROcodone/APAP 10/325 1 TAB TABLET PO PRN ×2 (06:51→18:14)
[2021-04-16] MEDS: ALBUTEROL SULFATE 2.5 MG/3 ML NEBU. NEB SCH ×4 (08:00→21:46)
[2021-04-16] MEDS: BUDESONIDE 0.5 MG/2 ML NEBU NEB SCH ×2 (08:00→21:47)
[2021-04-16] MEDS: IV NORMAL SALINE 1,000ML 1,000 ML IV SCH (08:05)
[2021-04-16 08:52] LABS: BASO % 0 % (0-3); EOS % 0 % (0-3); HEMATOCRIT 33.3 % (36.0-47.0); HEMOGLOBIN 11.1 g/dL (12.0-15.5); LYMPH # 0.1 x10^3/uL (1.0-4.8); LYMPH % 4 % (24-48); MEAN CORPUSCULAR HEMOGLOBIN 33 pg (25-35); MEAN CORPUSCULAR HGB CONC 33 g/dL (31-37); MEAN CORPUSCULAR VOLUME 100 fL (79-100); MONO # 0.1 x10^3/uL (0.0-1.1); MONO % 2 % (0-9); NEUT # 3.4 x10^3uL (1.8-7.7); NEUT % 94 % (31-73); PLATELET COUNT 197 x10^3/uL (140-400); RED BLOOD COUNT 3.34 x10^6/uL (3.50-5.40); RED CELL DISTRIBUTION WIDTH 15.2 % (11.5-14.5); WHITE BLOOD COUNT 3.6 x10^3/uL (4.0-11.0)
[2021-04-16] MEDS: CYCLOBENZAPRINE 10 MG TABLET. PO SCH ×3 (09:05→19:55)
[2021-04-16] MEDS: FUROSEMIDE 40 MG TABLET PO SCH (09:06)
[2021-04-16] MEDS: RIVAROXABAN 10 MG TABLET. PO SCH (09:06)
[2021-04-16] MEDS: ATORVASTATIN CALCIUM 20 MG TABLET PO SCH (09:06)
[2021-04-16] MEDS: methylPREDNISolone SOD SUCC PF 40 MG/ML VIAL. IV SCH ×2 (09:07→19:55)
[2021-04-16] MEDS: LEVOTHYROXINE 50 MCG TABLET PO SCH (09:10)
[2021-04-16 09:43] LABS: ALBUMIN 2.7 g/dL (3.4-5.0); ALBUMIN/GLOBULIN RATIO 0.8 (1.0-1.7); CALCIUM 7.8 mg/dL (8.5-10.1); CREATININE 0.9 mg/dL (0.6-1.0); GFR 63.4; POTASSIUM 4.5 mmol/L (3.5-5.1); TOTAL BILIRUBIN 0.3 mg/dL (0.2-1.0); TOTAL PROTEIN 6.1 g/dL (6.4-8.2)
[2021-04-16 11:03] VITALS: BP 104/59
[2021-04-16 12:52] LABS: % LYMPHS 6 % (24-48); % MONOS 1 % (0-10); % SEGS 93 % (35-66); PLT ESTIMATE ADEQUATE (ADEQUATE)
[2021-04-16 12:53] LABS: ANISOCYTOSIS SLIGHT; PLATELET CLUMP PRESENT
--- NOTE | 2021-04-16 15:00 | HP ---
DATE OF SERVICE: 04/16/2021 ADMIT DATE: 04/15/2021 HISTORY OF PRESENT ILLNESS: The patient is a 60-year-old female patient who presented to Emergency Department complaining of diarrhea, cough, congestion for the past week. 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 She is currently being treated for her lung cancer at [facility]. She is on chemotherapy; however, she is not due back until 04/23/2021. She reports that she is a daily cigarette smoker and initially she stated that she is not interested in quitting. However, she also has not received her flu vaccine or COVID vaccine and is not interested in receiving either of these vaccines; however, she denied any chest pains, denied any abdominal pain. Denied any constipation or increased urinary frequency, dysuria. Denied any blood in the urine. The patient denies seeing blood in her stools, stating that she has had diarrhea every day for the past week and noting these loose brown stools. The patient denies any recent fever. She was extensively investigated in the Emergency Room and has had lab work and imaging studies. Her lab work showed that her white cell count was normal at 7300 with normochromic normocytic anemia. Her blood gases showed a pH of 7.46, pCO2 of 47, pO2 of 20 and bicarbonate 33. This is venous blood gases. Her chemistry showed that she has hypokalemia and other than that, her lab works were well within normal range. Her chest x-ray showed mass-like right suprahilar opacity, likely corresponding with a neoplasm or past radiation changes. This is similar compared to the prior CT when allowed for differences in imaging modality and she has left apical opacity with adjacent pleural thickening without convincing correlate on the prior CT. This ____ additional scarring or underlying neoplasm. She had a CT chest, abdomen and pelvis, which showed that the patient has no pulmonary emboli identified. She has right more so than left airspace infiltrates, much of which is nodular in configuration with background emphysema. There are also more confluent opacities in both apices measuring larger on the left with spiculated margins, soft tissue prominence at the right hilum and extending along the bronchovascular structures, primarily to the right upper lobe and abutting the mediastinal border. The finding could represent pneumonia superimposed on malignancy. Treatment followed by a repeat CT scan of the chest is needed in more than a month. She has chronic observation to include tri-vessel calcific coronary artery disease. The patient was admitted. Her influenza A and B were negative; however, her SARS-CoV-2 antigen rapid testing was positive. The patient was admitted with COVID-19 infection, community-acquired pneumonia, acute hypoxic respiratory failure, diarrhea. She was started on IV antibiotic in the form of Solu-Medrol together with ceftriaxone and Zithromax as well as IV fluid. She was continued on her all medications. PAST MEDICAL HISTORY: Significant for chronic obstructive pulmonary disease, lung cancer, throat cancer. She has also gallstones. PAST SURGICAL HISTORY: Significant for cholecystectomy, hysterectomy, oophorectomy, tonsillectomy, left lower lobe lobectomy. ALLERGIES: SHE IS ALLERGIC TO AMOXICILLIN, ASPIRIN, ZITHROMAX AND EGGS. FAMILY HISTORY: Noncontributory. SOCIAL HISTORY: She is , has 1 daughter. She continued to smoke. Does not drink alcohol or recreational drugs. REVIEW OF SYSTEMS: As per history of present illness. MEDICATIONS: She is currently on following medications: She is on Anoro Ellipta 1 puff once a day, albuterol sulfate 2.5 mg in 3 mL by nebulizer 4 times a day, carisoprodol 350 mg twice a day, rivaroxaban 20 mg once a day, atorvastatin calcium 80 mg daily, hydrocodone/APAP 10/325 one tablet every 6 hours, oxycodone 10 mg extended release twice a day, clonazepam 2 mg twice a day, trazodone 100 mg at bedtime, furosemide 40 mg daily, levothyroxine sodium 50 mcg once a day. PHYSICAL EXAMINATION: GENERAL: On arrival to the Emergency Room, the patient was somewhat pale but not jaundiced or cyanosed. No lymphadenopathy, no thyromegaly, no jugular venous distention. No limb edema. VITAL SIGNS: Her heart rate was 105, blood pressure 104/58, temperature was 98.6, respiratory rate was 18 and oxygen saturation was 90% on room air. HEAD, EYES, EARS, NOSE AND THROAT: Normocephalic, atraumatic. NECK: Supple. HEART: Showed normal first and second heart sounds. No gallop or murmur. CHEST: Clear to auscultation, no crepitation or rhonchi. ABDOMEN: Distended, soft, nontender. NEUROLOGIC: She was grossly intact. LABORATORY DATA: On arrival showed a white cell count 7300, hemoglobin 12, hematocrit 36, MCV 100 and platelet count 211,000 with an automated differential showed 92% polymorphs, 3% lymphocytes and 5% monocytes. Her chemistry showed a serum sodium 140, potassium 3, chloride 101, bicarbonate 32, anion gap of 7, BUN 18, creatinine 1.1. Estimated GFR was 56 mL per minute. Her glucose 110, calcium was 8.4, phosphorus 2.1, magnesium was 1.6. Total bilirubin, AST, ALT, alkaline phosphatase were normal. Troponin I high sensitivity was 16. Beta-natriuretic peptide was 839. Total protein 7.4, albumin 3.2. Urinalysis was essentially unremarkable. Her influenza A and B were negative. SARS-CoV-2 antigens rapid testing was positive. ASSESSMENT AND PLAN: The patient was admitted with acute hypoxic respiratory failure, community-acquired pneumonia, COVID-19 infection, lung and throat cancer. She has also had diarrhea and hypokalemia. The patient was treated with IV Rocephin as well as IV fluid. We will reconcile all her medications and monitor her lab work and her response on a daily basis. LAURA/KRISTEN DR: Sumeet TID: [id number]
[2021-04-16 15:10] VITALS: BP 93/57
[2021-04-16] MEDS ORDERED: LOPERAMIDE 2 MG CAPSULE PO ONE (17:30)
[2021-04-16] MEDS ORDERED: LOPERAMIDE 2 MG CAPSULE PO PRN (17:30)
[2021-04-16] MEDS: LACTOBACILLUS RHAMNOSUS GG 1 CAPSULE. PO SCH (19:55)
[2021-04-16] MEDS ORDERED: traZODone 100 MG TABLET. PO SCH (21:00)
[2021-04-16 21:18] VITALS: BP 98/55
--- NOTE | 2021-04-16 23:30 | NUR ---
Report given to DIRK Trevino who assumed care of pt at this time.
--- NOTE | 2021-04-17 01:30 | PN ---
DATE: 04/16/2021 SUBJECTIVE: The patient is resting flat in bed, in no apparent respiratory distress. On questioning her, she continued to have recurrent bouts of dry cough, that is mostly nonproductive. She continued to have also multiple loose bowel movements. She has actually a total of 4 this morning; however, she denied any nausea, vomiting. Denied any abdominal pain. Denied any hematemesis, melena or hematochezia. Denied any chills, rigors or fever. PHYSICAL EXAMINATION: GENERAL: When I examined her this afternoon, she looked well and was clearly in no apparent distress. There was no pallor, jaundice, cyanosis or thyromegaly. No jugular venous distention. No limb edema. VITAL SIGNS: Her heart rate was 56, blood pressure was 104/59, temperature was 97.2, respiratory rate was 18 and oxygen saturation was 94% on 2 liters by nasal cannula. HEAD, EYES, EARS, NOSE, AND THROAT: Normocephalic, atraumatic. NECK: Supple. HEART: Showed normal first and second heart sounds. No gallop, rub or murmur. CHEST: Clear to auscultation. No crepitation or rhonchi. ABDOMEN: Distended, soft, nontender. NEUROLOGIC: She is grossly intact. Her intake and output are incompletely recorded. LABORATORY DATA: This morning showed her white cell count was 3600, hemoglobin 11, hematocrit 33, MCV 100 and platelet count of 197,000. Her chemistry showed a serum sodium of 141, potassium 4.5, chloride 106, bicarbonate 28, anion gap of 7, BUN 14, creatinine 0.9. Estimated GFR was 63 mL per minute. Her glucose 139, calcium was 7.8. Total bilirubin, AST, ALT, alkaline phosphatase were normal. Total protein 6.1, albumin was 2.7. ASSESSMENT: 1. COVID-19 infection. 2. Acute hypoxic respiratory failure. 3. Chronic obstructive pulmonary disease. 4. Community-acquired pneumonia. 5. Left lower lobe lobectomy for lung cancer, throat cancer. 6. Hyperlipidemia. 7. Hypothyroidism. 8. Diarrhea. 9. Hypokalemia. GAYE DR: Sumeet TID: [id number]
[2021-04-17] MEDS: ALBUTEROL SULFATE 2.5 MG/3 ML NEBU. NEB SCH ×2 (03:25→09:36)
--- NOTE | 2021-04-17 03:33 | NUR ---
pt refused txs.
[2021-04-17] MEDS: LEVOTHYROXINE 50 MCG TABLET PO SCH (05:47)
[2021-04-17] MEDS: HYDROcodone/APAP 10/325 1 TAB TABLET PO PRN (05:47)
[2021-04-17 06:07] VITALS: BP 106/70
[2021-04-17 07:09] LABS: ALBUMIN 2.8 g/dL (3.4-5.0); ALBUMIN/GLOBULIN RATIO 0.8 (1.0-1.7); CALCIUM 8.1 mg/dL (8.5-10.1); CREATININE 0.8 mg/dL (0.6-1.0); GFR 72.7; MAGNESIUM 2.1 mg/dL (1.8-2.4); POTASSIUM 4.5 mmol/L (3.5-5.1); TOTAL BILIRUBIN 0.2 mg/dL (0.2-1.0); TOTAL PROTEIN 6.2 g/dL (6.4-8.2)
[2021-04-17] MEDS: RIVAROXABAN 10 MG TABLET. PO SCH (07:54)
[2021-04-17] MEDS: FUROSEMIDE 40 MG TABLET PO SCH (07:54)
[2021-04-17] MEDS: LACTOBACILLUS RHAMNOSUS GG 1 CAPSULE. PO SCH (07:55)
[2021-04-17] MEDS: ATORVASTATIN CALCIUM 20 MG TABLET PO SCH (07:55)
[2021-04-17] MEDS: CYCLOBENZAPRINE 10 MG TABLET. PO SCH ×2 (07:55→13:40)
[2021-04-17] MEDS: methylPREDNISolone SOD SUCC PF 40 MG/ML VIAL. IV SCH (07:56)
[2021-04-17] MEDS: BUDESONIDE 0.5 MG/2 ML NEBU NEB SCH (08:00)
[2021-04-17 11:26] VITALS: BP 103/67
[2021-04-17] MEDS ORDERED: LEVO750T5 PO (15:35)
--- NOTE | 2021-04-17 16:01 | NUR ---
PATIENT IS DISCHARGED HOME, DISCHARGED INSTRUCTIONS REVIEWED, PATIENT VERBALIZED UNDERSTANDING. PATIENT LEFT ROOM VIA W/C ACCOMP BY STAFF. PATIENT IS TAKEN HOME BY FAMILY MEMBER VIA PERSONAL VEHICLE.
--- NOTE | 2021-04-17 20:15 | DS ---
DATE OF DISCHARGE: 04/17/2021 HOSPITAL COURSE: This is a 60-year-old female patient who was admitted through the Emergency Room with a complaint of diarrhea, cough, congestion for the past week. 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 She is being treated for lung cancer at [facility]. She is on chemotherapy; however, she is not to be back until 04/23/2021. She was basically extensively investigated and was found to have bilateral infiltrate. She has a mass-like right suprahilar opacity, likely corresponding to neoplasm or postradiation changes. She also has left apical opacity with adjacent pleural thickening without convincing correlate. Patient was positive for COVID-19 and therefore, the patient was admitted and started on IV antibiotic. She did actually very well and today, her diarrhea has completely subsided. The cough has mostly resolved. She is maintaining her oxygen saturation at 96% and therefore, decision was made to discharge her home to continue on all her medications and we added Levaquin to finish the course of treatment for her community-acquired pneumonia. PHYSICAL EXAMINATION: GENERAL: When I saw her today, she looked well and was clearly in no apparent respiratory distress, pale, but not jaundiced, cyanosed. No lymphadenopathy, no thyromegaly, no jugular venous distention. No limb edema. VITAL SIGNS: Her heart rate was 63, blood pressure is 103/67, temperature 97.2, respiratory rate was 16 and oxygen saturation was 94% on room air. HEAD, EYES, EARS, NOSE, AND THROAT: Normocephalic, atraumatic. NECK: Supple. HEART: Normal first and second heart sounds. No gallop or murmur. CHEST: Clear to auscultation. No crepitation or rhonchi. ABDOMEN: Soft, nontender. NEUROLOGIC: She is grossly intact. LABORATORY DATA: Showed a white cell count of 3600, hemoglobin 11, hematocrit 33, MCV 100 and platelet count of 197,000. Her chemistry today showed a serum sodium 142, potassium 4.5, chloride 105, bicarbonate 28, anion gap of 9, BUN 14, creatinine 0.8. Estimated GFR was 73 mL per minute. Her glucose 118, calcium was 8.1. Magnesium 2.1. Total bilirubin, AST, ALT, alkaline phosphatase were normal. Total protein 6.2, albumin 2.8. She was discharged home to continue on levofloxacin 750 mg once a day for 7 more days, albuterol sulfate by nebulizer 4 times a day, atorvastatin 80 mg at bedtime, carisoprodol 350 mg twice a day, clonazepam 2 mg twice a day, furosemide 40 mg daily, hydrocodone/APAP 10/325 one tablet every 6 hours, levothyroxine sodium 50 mcg once a day, OxyContin 10 mg twice a day, rivaroxaban for Xarelto 20 mg once a day, trazodone 100 mg at bedtime, and Anoro Ellipta 1 inhalation once a day. FINAL DISCHARGE DIAGNOSES: 1. COVID-19 infection. 2. Acute hypoxic respiratory failure, resolved. 3. Chronic obstructive pulmonary disease. 4. Community-acquired pneumonia. 5. Left lower lobe lobectomy for lung cancer. 6. Throat cancer treated with radiation treatment. 7. Hyperlipidemia. 8. Hypothyroidism. 9. Hypokalemia. 10. Diarrhea have resolved. RHONA/EKT DR: Sumeet TID: [id number]
== END 2021-04-17 16:00 | disposition home or self-care (01) | DRG 177 ==
LOC: ER 14:59 → ER HOLD 18:44 → 1 SOUTH 21:48
PROVIDERS: ADMIT Hospitalist; ATTEND Hospitalist
DX: U07.1 COVID-19 (principal); J96.01 Acute respiratory failure with hypoxia; J12.82 Pneumonia due to coronavirus disease 2019; E78.5 Hyperlipidemia, unspecified; E03.9 Hypothyroidism, unspecified; E87.6 Hypokalemia; F17.210 Nicotine dependence, cigarettes, uncomplicated; I25.10 Atherosclerotic heart disease of native coronary artery without angina pectoris; J43.9 Emphysema, unspecified; Z85.72 Personal history of non-Hodgkin lymphomas; Z85.819 Personal history of malignant neoplasm of unspecified site of lip, oral cavity, and pharynx; Z92.3 Personal history of irradiation; Z90.2 Acquired absence of lung [part of]; Z90.710 Acquired absence of both cervix and uterus; Z88.0 Allergy status to penicillin; Z88.8 Allergy status to other drugs, medicaments and biological substances; Z85.118 Personal history of other malignant neoplasm of bronchus and lung; Z66 Do not resuscitate
CPT/HCPCS: 36415; 71045; 71275; 74177; 80053; 81001; 82803; 83735; 83880; 84100; 84484; 85007; 85025; 87040; 87086; 87428; 93005; 94640; 96361; 96365; 96375; J0696; J1100; J1956; J2405; J2920; J3475; Q9967; 99285-25; J7030; J7613

== ENCOUNTER 2021-06-18 17:02 | Emergency (ER) | payer MEDICARE ==
[~2021-06-18] VITALS: Ht 175.3 cm; Wt 57.0 kg
[~2021-06-18 17:02] MED LIST changes: +ALBU2.5V5 NEB; +ATOR80TA72 PO; +CARI350T14 PO; +CLON2TAB9 PO; +FURO40TA4 PO; +LEVO50TA5 PO; +LEVO750T5 PO; +OXYC10TA PO; +RIVA20TA2 PO; +TRAZ-125 PO; +UMEC1DIS INH
[2021-06-18 17:09] VITALS: BP 114/67
[2021-06-18] MEDS ORDERED: TERB15CR12 TP (17:39)
--- NOTE | 2021-06-18 17:39 | PHYS DOC ---
Past History Past Medical History: Cancer, Gallstones Additional Past Medical Histor: lung cancer (ADITYA CARY) Past Surgical History: Cholecystectomy, Hysterectomy, Oophorectomy, Tonsillectomy, Other Additional Past Surgical Histo: left lower lobectomy (ADITYA CARY) Alcohol Use: None Drug Use: None (ADITYA CARY) General Adult EDM: Chief Complaint: SKIN RASH/ABSCESS HPI: HPI: Patient is a 60 year old female who presents with itchy, painful rash beneath both breasts. Patient was getting a mammogram today, and the cardiac cath lab technologist suggested she present to the ER, because it appeared it might be shingles. She states she has had shingles before on her abdomen. Her current rash is bilateral and she states it has been present for about 3 weeks and getting worse. Patient has no other complaints at this time. (ADITYA CARY) Review of Systems: Review of Systems: Constitutional: Denies fever, chills or generalized weakness Eyes: Denies change in visual acuity, visual field deficits or discharge HENT: Denies ear pain, nasal congestion or sore throat Respiratory: Denies cough or shortness of breath Cardiovascular: Denies chest pain, palpitations or edema GI: Denies abdominal pain, nausea, vomiting, bloody stools or diarrhea : Denies dysuria or hematuria Musculoskeletal: Denies back pain or joint pain Integument: See HPI Neurologic: Denies headache, focal weakness or sensory changes (ADITYA CARY) Allergies: Allergies: Allergies Coded Allergies Type Severity Reaction Last Updated Verified amoxicillin Allergy Severe anaphylaxis 06/18/14 Yes aspirin Allergy Severe Unknown 10/15/15 Yes azithromycin Allergy Severe anaphylaxis 06/18/14 Yes egg Allergy Intermediate 06/18/14 Yes (ADITYA CARY) Physical Exam: PE: Constitutional: Well developed, well nourished, no acute distress, non-toxic appearance. HENT: Normocephalic, atraumatic, bilateral external ears normal, nose normal. Eyes: EOMI, conjunctiva normal, no discharge. Neck: Normal range of motion, no stridor. Skin: Intertriginous folds inferior to both breasts with moist, slightly erythematous tender rash that is not well-circumscribed, no vesicles or open lesions. Skin otherwise warm, dry, no erythema, no rash. Extremities: No cyanosis, no clubbing, ROM intact, no edema. Neurologic: Alert and oriented x4, normal motor function, normal sensory function, no focal deficits noted. (ADITYA CARY) Current Patient Data: Vital Signs: Vital Signs Date Time Temp Pulse Resp B/P (MAP) Pulse Ox O2 Delivery O2 Flow Rate FiO2 06/18/21 17:09 98.5 82 18 114/67 (83) 98 Room Air (ADITYA CARY) Heart Score: C/O Chest Pain: No (ADITYA CARY) Course & Med Decision Making: Course & Med Decision Making Pertinent Labs and Imaging studies reviewed. (See chart for details) (ADITYA CARY) Dragon Disclaimer: Dragon Disclaimer: This electronic medical record was generated, in whole or in part, using a voice recognition dictation system. (ADITYA CARY) Departure Departure: Impression: Primary Impression: Tinea corporis Disposition: HOME / SELF CARE / HOMELESS Condition: STABLE Referrals: DOTTY VASQUEZ MD (PCP) Patient Instructions: Yeast Infection of the Skin, [id number] Additional Instructions: EMERGENCY DEPARTMENT GENERAL DISCHARGE INSTRUCTIONS Thank you for coming to [facility] (ED) today and trusting us with you care. We trust that you had a positive experience in our Emergency Department. If you wish to speak to the department management, you may call the director at [phone]. YOUR FOLLOW UP INSTRUCTIONS ARE FOLLOWS: 1. Follow up with your primary care doctor. If you do not have a primary doctor, please ask for a resource list of physicians or clinics that may be able to assist you with follow up care. 2. The emergency provider has interpreted your imaging studies, if any were ordered. The radiology range management specialist also reviewed them. If there is a change in the findings, you will be notified in 48 hours when at all possible. 3. If a lab test or culture has been done, your results will be reviewed and you will be notified if you need a change in treatment. 4. Follow instructions verbalized to you and refer to the printouts if needed. ADDITIONAL INSTRUCTIONS AND INFORMATION: 1. Your care today has been supervised by a physician who is specially trained in emergency care. Many problems require more than one evaluation for a comp lete diagnosis and treatment. We recommend that you schedule your follow up appointment as recommended to ensure complete treatment of you illness or injury. If you are unable to obtain follow up care and continue to have a problem, or if your condition worsens, we recommend that you return to the ED. 2. We are not able to safely determine your condition over the phone nor are we able to give sound medical advice over the phone. For these safety reasons, if you call for medical advice we will ask you to come to the ED for further evaluation. 3. If you have any questions regarding these discharge instructions please call the ED at [phone]. SAFETY INFORMATION: In the interest of safety, wellness, and injury prevention; we encourage you to wear your seat belt, if you smoke; quite smoking, and we encourage family to use a protective helmet for bicycling and other sporting events that present an increased risk for head injury. IF YOUR SYMPTOMS WORSEN OR NEW SYMPTOMS DEVELOP, OR YOU HAVE CONCERNS ABOUT YOUR CONDITION; OR IF YOUR CONDITION WORSENS WHILE YOU ARE WAITING FOR YOUR FOLLOW UP APPOINTMENT; EITHER CONTACT YOUR PRIMARY CARE DOCTOR, THE PHYSICIAN WHOSE NAME AND NUMBER YOU WERE GIVEN, OR RETURN TO THE ED IMMEDIATELY. Scripts Terbinafine Hcl (TERBINAFINE) 15 Gm Cream..g. 1 LANCE TP BID for tinea for 14 Days, #30 GM 0 Refills Prov: ADITYA CARY 06/18/21 Attending Signature Attending Signature I have reviewed the PA/DATA INPUT CLERK's note and plan of care. I was available for consultation as needed during the patient's visit in the emergency department. I agree with the clinical impression, plan, and disposition. (SUELLEN DICKSON DO) ADITYA CARY Jun 18, 2021 17:39 SUELLEN DICKSON DO Jun 19, 2021 06:48
== END 2021-06-18 17:45 | disposition home or self-care (01) ==
LOC: ER 17:02
DX: B35.4 Tinea corporis (principal); Z88.1 Allergy status to other antibiotic agents; Z88.6 Allergy status to analgesic agent; Z91.012 Allergy to eggs
CPT/HCPCS: 99281